=== PATIENT | male | born 1965 | race Caucasian/White ===

== ENCOUNTER 2016-11-13 07:17 | Day surgery (SDC) | payer OTHER ==
[2016-11-12 13:50] VITALS: BMI 23.1
[2016-11-13] MEDS ORDERED: PROPOFOL 20 ML ONE ×3 (07:56)
[2016-11-13] MEDS ORDERED: LIDOCAINE HCL/PF 2% SDV 5ML VIAL ONE (07:56)
[2016-11-13 08:34] VITALS: TEMP 97.5
[2016-11-13 09:42] VITALS: BP 121/80; PULSE 59
== END 2016-11-13 10:11 | disposition home or self-care (01) ==
LOC: JASU-ENDO 07:17
PROVIDERS: ATTEND Internal Medicine Gastroenterology
PROC: 0DJD8ZZ Inspection of Lower Intestinal Tract, Via Natural or Artificial Opening Endoscopic (ICD-10-PCS; principal; 2016-11-13 08:00)
DX: Z12.11 Encounter for screening for malignant neoplasm of colon (principal); K57.30 Diverticulosis of large intestine without perforation or abscess without bleeding; K63.89 Other specified diseases of intestine

== ENCOUNTER 2022-02-19 04:31 | Day surgery (SDC) | payer BC ==
[2022-02-17 14:10] VITALS: BMI 22.8
[2022-02-19 13:04] VITALS: TEMP 98
[2022-02-19 13:06] VITALS: PULSE 51
[2022-02-19 13:23] VITALS: BP 125/74; RESP 18
== END 2022-02-19 13:37 | disposition home or self-care (01) ==
LOC: JASU-ENDO 04:31
PROVIDERS: ATTEND Internal Medicine Gastroenterology
PROC: 0DB98ZX Excision of Duodenum, Via Natural or Artificial Opening Endoscopic, Diagnostic (ICD-10-PCS; 2022-02-19)
PROC: 0DB78ZX Excision of Stomach, Pylorus, Via Natural or Artificial Opening Endoscopic, Diagnostic (ICD-10-PCS; 2022-02-19)
PROC: 0DJD8ZZ Inspection of Lower Intestinal Tract, Via Natural or Artificial Opening Endoscopic (ICD-10-PCS; principal; 2022-02-19 11:00)
DX: Z12.11 Encounter for screening for malignant neoplasm of colon (principal); K29.80 Duodenitis without bleeding; K26.9 Duodenal ulcer, unspecified as acute or chronic, without hemorrhage or perforation; K29.50 Unspecified chronic gastritis without bleeding; K64.8 Other hemorrhoids; K57.30 Diverticulosis of large intestine without perforation or abscess without bleeding
CPT/HCPCS: 88305-TC; 88342-TC